=== PATIENT | female | born 1940 | race Caucasian/White ===

== ENCOUNTER 2021-01-11 20:15 | Emergency (ER) | payer MEDICARE, OTHER ==
[~2021-01-11 20:15] MED LIST: EPINEPHrine 1:10,000 1 MG/10 ML Syringe ONE; Sodium Bicarbonate 8.4% 50 MEQ/50 ML Syringe ONE
[2021-01-11] MEDS ORDERED: Sodium Chloride 0.9% 1,000 ML IV ONE (20:16)
[2021-01-11] MEDS ORDERED: D5W IV SCH (20:30)
[2021-01-11] MEDS ORDERED: DOPAMINE 400 MG IV SCH (20:30)
[2021-01-11] MEDS ORDERED: EPINEPHrine 1:10,000 1 MG/10 ML Syringe ONE (21:15)
--- NOTE | 2021-01-11 21:55 | EDM.PDOC ---
ED HPI GENERAL MEDICAL PROBLEM - General Chief Complaint: CPR in Progress Stated Complaint: [facility] Time Seen by Provider: 01/11/21 20:15 Source of Information: Reports: EMS History Limitations: Reports: Physical Impairment - History of Present Illness INITIAL COMMENTS - FREE TEXT/NARRATIVE: A Code Blue alert was called for this patient. Mrs. Bocanegra was brought to the ED by EMS with report that she had been experiencing some back pain around 16:00 this afternoon, but that it improved, therefore she subsequently went to a meeting, followed by going to [employer] with her . Apparently the patient was standing in the checkout line, when she suddenly collapsed, striking her head hard on the floor. The police were the first to arrive, placing an AED which advised a shock. When EMS arrived, they found the patient to be in asystole. CPR was begun, a total of 4 defibrillating shocks were given, the patient was intubated, and a total of 5 mg of epinephrine were given, along with 300 mg of amiodarone. EMS stated that at one point the patient developed a junctional tachycardia with a good pulse and blood pressure of 170/115, however, the patient subsequently went into ventricular fibrillation, and remained there until arrival to the ED. Upon arrival to the ED, the patient was receiving chest compressions and bag ventilation via an OETT. She was unresponsive with dilated and fixed pupils. The patient's informed me that the patient has a history of hypertension, untreated for the past several years. She was on no medications. The patient and her are visiting this area from out of town. Past Medical History Cardiovascular History: Reports: Hypertension (untreated) Musculoskeletal History: Reports: Osteoarthritis Endocrine/Metabolic History: Reports: Obesity/BMI 30+ - Past Surgical History Musculoskeletal Surgical History: Reports: Knee Replacement ED ROS GENERAL - Review of Systems Review Of Systems: Unable To Obtain Reason Not Obtained: Patient unconscious ED EXAM, CPR - Physical Exam Exam: See Below Limited By: Physical Impairment General Appearance: Obtunded, Severe Distress Eye Exam: Bilateral Eye: Other (dilated and fixed) Ears: Normal External Exam Nose: Normal Inspection Throat/Mouth: Other (OETT in place) Head: Atraumatic, Normocephalic Neck: N, S, NON, FUL Respiratory Chest: No Respiratory Distress, Lungs Clear, Normal Breath Sounds, No Accessory Muscle Use Cardiovascular: CPR In Progress GI/Abdominal Exam: Normal Bowel Sounds, Soft, No Organomegaly, No Distention, No Abnormal Bruit, No Mass Extremities: Normal Inspection, Normal Range of Motion, No Pedal Edema, Normal Capillary Refill Neurological: Unresponsive Skin Exam: Warm, Dry, Intact, No Rash, Pallor #1 Interpretation EKG Date: 01/11/21 Time: 20:34 Rhythm: Other (Junctional rhythm) Rate (Beats/Min): 75 Reserve: LAD-Left Reserve Deviation P-Wave: Absent QRS: RBBB ST-T: Elevated (V2-V6, c/w AMI) QT: Normal Comparison: NA - No Prior EKG Course - Orders/Labs/Meds Labs: Laboratory Tests 01/11/21 01/11/21 01/11/21 Range/Units 20:40 20:40 20:40 WBC 4.40 (3.98-10.04) K/mm3 RBC 3.32 L (3.98-5.22) M/mm3 Hgb 11.1 L (11.2-15.7) gm/dl Hct 35.2 (34.1-44.9) % MCV 106.0 H (79.4-94.8) fl MCH 33.4 H (25.6-32.2) pg MCHC 31.5 L (32.2-35.5) g/dl RDW Std Deviation 50.8 H (36.4-46.3) fL Plt Count 210 (182-369) K/mm3 MPV 9.6 (9.4-12.3) fl Neut % (Auto) 15.8 L (34.0-71.1) % Lymph % (Auto) 71.8 H (19.3-51.7) % [place] % (Auto) 3.6 L (4.7-12.5) % Eos % (Auto) 1.1 (0.7-5.8) Baso % (Auto) 0.9 (0.1-1.2) % Neut # (Auto) 0.69 L (1.56-6.13) K/mm3 Lymph # (Auto) 3.16 (1.18-3.74) K/mm3 [place] # (Auto) 0.16 L (0.24-0.36) K/mm3 Eos # (Auto) 0.05 (0.04-0.36) K/mm3 Baso # (Auto) 0.04 (0.01-0.08) K/mm3 Manual Slide Review Abnormal smear PT 11.6 (9.7-12.0) SECONDS INR 1.09 APTT 33.9 H (21.7-31.4) SECONDS D-Dimer, Quantitative 25.86 H (0.19-0.50) mg/L Sodium 145 (136-145) mEq/L Potassium 4.6 (3.5-5.1) mEq/L Chloride 109 H (98-107) mEq/L Carbon Dioxide 22 (21-32) mEq/L Anion Gap 18.6 H (5-15) BUN 26 H (7-18) mg/dL Creatinine 1.6 H (0.55-1.02) mg/dL Est Cr Clr Drug Dosing TNP Estimated GFR (MDRD) 31 (>60) mL/min BUN/Creatinine Ratio 16.3 (14-18) Glucose 187 H (70-99) mg/dL POC Glucose (70-99) mg/dL Lactic Acid (0.4-2.0) mmol/L Calcium 8.4 L (8.5-10.1) mg/dL Magnesium 2.2 (1.8-2.4) mg/dL Total Bilirubin 0.3 (0.2-1.0) mg/dL AST 233 H (15-37) U/L ALT 243 H (14-59) U/L Alkaline Phosphatase 97 (46-116) U/L Troponin I 0.876 H* (0.00-0.056) ng/mL Total Protein 6.6 (6.4-8.2) g/dl Albumin 3.1 L (3.4-5.0) g/dl Globulin 3.5 gm/dL Albumin/Globulin Ratio 0.9 L (1-2) Ethyl Alcohol 0.00 (0.00) gm% 01/11/21 01/11/21 Range/Units 20:40 20:48 WBC (3.98-10.04) K/mm3 RBC (3.98-5.22) M/mm3 Hgb (11.2-15.7) gm/dl Hct (34.1-44.9) % MCV (79.4-94.8) fl MCH (25.6-32.2) pg MCHC (32.2-35.5) g/dl RDW Std Deviation (36.4-46.3) fL Plt Count (182-369) K/mm3 MPV (9.4-12.3) fl Neut % (Auto) (34.0-71.1) % Lymph % (Auto) (19.3-51.7) % [place] % (Auto) (4.7-12.5) % Eos % (Auto) (0.7-5.8) Baso % (Auto) (0.1-1.2) % Neut # (Auto) (1.56-6.13) K/mm3 Lymph # (Auto) (1.18-3.74) K/mm3 [place] # (Auto) (0.24-0.36) K/mm3 Eos # (Auto) (0.04-0.36) K/mm3 Baso # (Auto) (0.01-0.08) K/mm3 Manual Slide Review PT (9.7-12.0) SECONDS INR APTT (21.7-31.4) SECONDS D-Dimer, Quantitative (0.19-0.50) mg/L Sodium (136-145) mEq/L Potassium (3.5-5.1) mEq/L Chloride (98-107) mEq/L Carbon Dioxide (21-32) mEq/L Anion Gap (5-15) BUN (7-18) mg/dL Creatinine (0.55-1.02) mg/dL Est Cr Clr Drug Dosing Estimated GFR (MDRD) (>60) mL/min BUN/Creatinine Ratio (14-18) Glucose (70-99) mg/dL POC Glucose 184 H (70-99) mg/dL Lactic Acid 8.4 H* (0.4-2.0) mmol/L Calcium (8.5-10.1) mg/dL Magnesium (1.8-2.4) mg/dL Total Bilirubin (0.2-1.0) mg/dL AST (15-37) U/L ALT (14-59) U/L Alkaline Phosphatase (46-116) U/L Troponin I (0.00-0.056) ng/mL Total Protein (6.4-8.2) g/dl Albumin (3.4-5.0) g/dl Globulin gm/dL Albumin/Globulin Ratio (1-2) Ethyl Alcohol (0.00) gm% Meds: Medications Discontinued Medications Generic Name Dose Route Start Last Admin Trade Name Luis PRN Reason Stop Dose Admin Epinephrine HCl Confirm 01/11/21 21:15 Epinephrine 1:10,000 1 Mg/10 Ml Syringe Administered 01/11/21 21:16 Dose 1 mg .ROUTE .STK-MED ONE - Re-Assessments/Exams Free Text/Narrative Re-Assessment/Exam: 01/11/21 21:46 After arrival to the ED, the patient was found to have a junctional escape rhythm at about 75 to 78 bpm, with no pulse. Epinephrine #6 was given at 20:18, and an amp of bicarbonate 20:20. At 20:21, the patient still had no pulse, therefore was given epinephrine #7. At 20:24, she did have a pulse, and a BP at 20:31 was 106/90, with a HR of 79 bpm. By 20:33, her pulse was still present but feeling thready, therefore dopamine was started at 5 mcg/kg/min. By 20:41, she again had no pulse, therefore the dopamine drip was stopped, and epinephrine #8 was given. At 20:44, she again had a thready pulse, therefore epinephrine #10 was given. A second amp of bicarbonate was given at 20:44. Her BP at 2045 was 111/25, with a HR of 70 bpm. At 20:48, she had a good pulse. Case discussed with Lauren at [facility] ([place] has no beds) at 20:54. Case then discussed with Dr. Sazn, fuel cell repairer at [facility], at 20:59. He agreed that we cannot give a thrombolytic without first checking a CT scan of the head, given the report of the patient struck her head hard when she fell, however, unfortunately, we are not in a position to check a CT of the head, as the patient has not been hemodynamically stable enough to go to CT, and the Wm chest compressor device is still on her chest. He suggested we give a rectal aspirin, but also wanted to have the Tourist Information Assistant weigh in. Dr. Lucas, Tourist Information Assistant at [facility], who was added to the call at 21:06. She felt that if the patient were able to survive to get to their facility, she would not take the patient to the [facility] immediately, rather, the patient would need to go for a CT of the head first. She agreed that a thrombolytic should not be given without a CT of the head first. She disagreed with giving rectal aspirin. She opined that CPR had been going on for too long for the patient to likely survive. When I returned to the patient's room, dopamine had again been given up to 20 mcg/kg/min, and additional epinephrine had been given. The patient was receiving chest compressions via the Wm device. I spoke to the patient's , at the bedside. I explained that with prolonged lack of circulation, it was highly likely that the patient had already suffered a severe, irreversible brain damage. I recommended that at our next pulse check, the patient did not have a pulse, that we cease efforts. The patient's agreed. At the next pulse check, the patient did not have a palpable carotid or femoral pulse. No heart tones on auscultation. The patient had some agonal respirations. No response to noxious stimuli. We did not resume chest compressions, and the patient's agonal respirations ceased at 21:27. She was pronounced at that time. Departure - Departure Time of Disposition: 21:55 Disposition: 20 Preliminary Cause of *Q: Cardiac Arrest Clinical Impression: Cardiac arrest - Discharge Information *PRESCRIPTION DRUG MONITORING PROGRAM REVIEWED*: Not Applicable *COPY OF PRESCRIPTION DRUG MONITORING REPORT IN PATIENT MATTY: Not Applicable Referrals: Gayle Wallis PA [Primary Care Provider] - Forms: ED Department Discharge
== END 2021-01-12 00:06 | disposition expired ==
LOC: JD.ED 20:15
DX: I46.9 Cardiac arrest, cause unspecified (principal); I10 Essential (primary) hypertension; E66.9 Obesity, unspecified; Z68.30 Body mass index [BMI] 30.0-30.9, adult
CPT/HCPCS: 36415; 51702; 80053; 80307; 82947; 83605; 83735; 84484; 85025; 85379; 85610; 85730; 92950; 93005; 96365; 96368; 99285; J0171; J0282; J1265; J7030